=== PATIENT | female | born 1935 | race Caucasian/White ===

== ENCOUNTER 2018-01-06 17:55 | Emergency (ER) | payer OTHER ==
[2018-01-06] MEDS: ACETAMINOPHEN 500 MG TAB PO (20:12)
[2018-01-06] MEDS: DIPHTH/TET/ACEL PERTUSS (ADULT) 0.5 ML VIAL IM (20:19)
[2018-01-06] MEDS: LIDOCAINE 2%/EPI MPF (SDV) 20 ML VIAL INJ (20:46)
== END 2018-01-06 22:13 | disposition home or self-care (01) ==
LOC: FTE 17:55
DX: S01.111A Laceration without foreign body of right eyelid and periocular area, initial encounter (principal); S01.81XA Laceration without foreign body of other part of head, initial encounter; I10 Essential (primary) hypertension; W22.8XXA Striking against or struck by other objects, initial encounter; Y92.481 Parking lot as the place of occurrence of the external cause; Z23 Encounter for immunization
CPT/HCPCS: 12011; 70450; 70486; 72125; 90471; 90715; 99285-25

== ENCOUNTER 2018-02-03 21:21 | Inpatient (IN) | payer OTHER ==
[2018-02-03 23:42] LABS: WHITE BLOOD COUNT 9.9 10^3/ul (4.8-10.8)
[2018-02-03 23:43] LABS: HEMATOCRIT 31.4 % (37.0-47.0); HEMOGLOBIN 10.5 g/dl (12.0-16.0); MEAN CORPUSCULAR HEMOGLOBIN 28.5 pg (29.0-33.0); MEAN CORPUSCULAR HGB CONC 33.4 g/dl (32.0-37.0); MEAN CORPUSCULAR VOLUME 85.1 fl (82.0-101.0); MEAN PLATELET VOLUME 9.8 fl (7.4-10.4); PLATELET COUNT 707 10^3/UL (140-415); RED BLOOD COUNT 3.69 10^6/ul (4.20-5.40); RED CELL DISTRIBUTION WIDTH 16.7 % (11.5-14.5)
[2018-02-03 23:59] LABS: ALANINE AMINOTRANSFERASE 63 IU/L (13-69); ALKALINE PHOSPHATASE 408 IU/L (42-121); ANION GAP 11 (8-16); ASPARTATE AMINO TRANSFERASE 88 IU/L (15-46); BILIRUBIN,INDIRECT 0.4 mg/dl (0-1.1); BILIRUBIN,TOTAL 0.4 mg/dl (0.2-1.3); BLOOD UREA NITROGEN 9 mg/dl (7-20); CALCIUM 8.4 mg/dl (8.4-10.2); CARBON DIOXIDE 24 mmol/L (21-31); CHLORIDE 104 mmol/L (97-110); CREATININE 0.47 mg/dl (0.44-1.00); GLUCOSE 108 mg/dl (70-220); LIPASE 287 U/L (23-300); POTASSIUM 3.9 mmol/L (3.5-5.1); SODIUM 135 mmol/L (135-144)
[2018-02-04] LABS: ALBUMIN 2.7 g/dl (3.3-4.9); ALBUMIN/GLOBULIN RATIO 0.75; TOTAL PROTEIN 6.3 g/dl (6.1-8.1)
[2018-02-04 00:13] LABS: ADD MAN DIFF? YES; PATH REVIEW? YES
[2018-02-04 00:18] LABS: INR 0.91; PARTIAL THROMBOPLASTIN TIME 33.7 Sec (25.0-35.0); PROTIME 12.3 Sec (11.9-14.9)
[2018-02-04] MEDS ORDERED: ONDANSETRON 4 MG INJ (00:30)
[2018-02-04] MEDS: ONDANSETRON 4 MG INJ IV (00:33)
[2018-02-04 01:03] LABS: BAND NEUTROPHILS #M 0.2 10^3/ul (0.0-0.6); BAND NEUTROPHILS % (M) 3 % (0-4); GIANT THROMBO% (M) 1 % (0-0); LYMPHOCYTES #M 0.6 10^3/ul (0.8-2.9); LYMPHOCYTES % (M) 7 % (15-51); METAMYELOCYTES %M 1 % (0-0); MONOCYTE #M 0.3 10^3/ul (0.3-0.9); MONOCYTES % (M) 4 % (0-11); PLATELET ESTIMATE INCREASED; SEG NEUT #M 8.4 10^3/ul (1.6-7.5); SEGMENTED NEUTROPHILS (M) % 85 % (39-77); SMUDGE%M 2 % (0-0)
[2018-02-04 01:28] LABS: URINE BLOOD (Dip) POC Negative (NEGATIVE); URINE GLUCOSE (Dip) POC Negative (NEGATIVE); URINE KETONES (Dip) POC Negative (NEGATIVE); URINE LEUKOCYTE EST (Dip) POC Negative (NEGATIVE); URINE NITRITE (Dip) POC Negative (NEGATIVE); URINE TOTAL PROTEIN POC 1+ (NEGATIVE)
[2018-02-04] MEDS ORDERED: NACL 0.9% 3 ML SYG IV (07:00)
[2018-02-04] MEDS ORDERED: ALBUTEROL/IPRATROPIUM (NEB) 3 ML AMP HHN (07:00)
[2018-02-04] MEDS ORDERED: LOPERAMIDE 2 MG CAP PO (07:00)
[2018-02-04] MEDS: PANTOPRAZOLE (EC) 40 MG TAB PO (07:11)
[2018-02-04] MEDS: DOCUSATE SODIUM 100 MG CAP PO ×2 (09:50→20:00)
[2018-02-04] MEDS: traMADol 50 MG TAB PO (14:33)
[2018-02-04] MEDS ORDERED: ZOLPIDEM 5 MG TAB PO (18:30)
[2018-02-04] MEDS: SOD CHLORIDE 0.9% 1,000 ML IV (19:55)
[2018-02-04] MEDS ORDERED: traZODone 50 MG TAB PO (21:00)
[2018-02-05 05:18] LABS: ADD MAN DIFF? NO
[2018-02-05 05:29] LABS: BASOPHIL # 0.1 10^3/ul (0.0-0.1); BASOPHILS % 1.1 % (0.0-2.0); EOSINOPHILS # 0.1 10^3/ul (0.0-0.5); EOSINOPHILS % 0.5 % (0.0-7.0); HEMATOCRIT 31.4 % (37.0-47.0); HEMOGLOBIN 10.1 g/dl (12.0-16.0); LYMPHOCYTES # 1.2 10^3/ul (0.8-2.9); LYMPHOCYTES % 12.2 % (15.0-51.0); MEAN CORPUSCULAR HEMOGLOBIN 27.4 pg (29.0-33.0); MEAN CORPUSCULAR HGB CONC 32.2 g/dl (32.0-37.0); MEAN CORPUSCULAR VOLUME 85.1 fl (82.0-101.0); MEAN PLATELET VOLUME 9.9 fl (7.4-10.4); MONOCYTE # 0.7 10^3/ul (0.3-0.9); NEUTROPHIL # 7.7 10^3/ul (1.6-7.5); NEUTROPHILS % 78.8 % (39.0-77.0); PLATELET COUNT 677 10^3/UL (140-415); RED BLOOD COUNT 3.69 10^6/ul (4.20-5.40); RED CELL DISTRIBUTION WIDTH 16.5 % (11.5-14.5)
[2018-02-05 05:29] LABS: WHITE BLOOD COUNT 9.8 10^3/ul (4.8-10.8)
[2018-02-05] MEDS: PANTOPRAZOLE (EC) 40 MG TAB PO ×2 (05:39→07:20)
[2018-02-05 06:02] LABS: ALANINE AMINOTRANSFERASE 49 IU/L (13-69); ALBUMIN 2.4 g/dl (3.3-4.9); ALKALINE PHOSPHATASE 355 IU/L (42-121); ANION GAP 10 (8-16); ASPARTATE AMINO TRANSFERASE 67 IU/L (15-46); BILIRUBIN,INDIRECT 0.3 mg/dl (0-1.1); BILIRUBIN,TOTAL 0.3 mg/dl (0.2-1.3); BLOOD UREA NITROGEN 9 mg/dl (7-20); CALCIUM 8.1 mg/dl (8.4-10.2); CARBON DIOXIDE 27 mmol/L (21-31); CHLORIDE 104 mmol/L (97-110); CHOL/HDL RATIO 3.8 RATIO; CHOLESTEROL 80 mg/dl (100-200); CREATININE 0.51 mg/dl (0.44-1.00); GLUCOSE 86 mg/dl (70-220); HDL CHOLESTEROL 21 mg/dl (33-92); LDL CHOLESTEROL,CALCULATED 38 mg/dl; PHOSPHORUS 3.2 mg/dl (2.5-4.9); POTASSIUM 3.8 mmol/L (3.5-5.1); SODIUM 137 mmol/L (135-144); TOTAL PROTEIN 5.4 g/dl (6.1-8.1); TRIGLYCERIDES 106 mg/dl (0-149)
[2018-02-05 06:12] LABS: HEMOGLOBIN A1C 5.4 % (0-5.9)
[2018-02-05] MEDS: METOPROLOL 25 MG TAB PO (08:57)
[2018-02-05] MEDS: traMADol 50 MG TAB PO ×2 (08:58→18:00)
[2018-02-05] MEDS: DOCUSATE SODIUM 100 MG CAP PO ×2 (09:00→21:00)
[2018-02-05] MEDS: SOD CHLORIDE 0.9% 1,000 ML IV ×2 (11:17→23:43)
[2018-02-06] MEDS: traMADol 50 MG TAB PO ×2 (00:14→20:27)
[2018-02-06] MEDS: morphine 4 MG/ML VIAL IV (03:32)
[2018-02-06] MEDS: SOD CHLORIDE 0.9% 1,000 ML IV ×2 (08:00→12:50)
[2018-02-06] MEDS: DOCUSATE SODIUM 100 MG CAP PO ×3 (09:00→20:27)
[2018-02-06] MEDS: PANTOPRAZOLE (EC) 40 MG TAB PO ×2 (09:52→10:04)
[2018-02-06] MEDS: ONDANSETRON 4 MG INJ IV (10:00)
[2018-02-07] MEDS: SOD CHLORIDE 0.9% 1,000 ML IV ×2 (00:57→17:28)
[2018-02-07] MEDS: DOCUSATE SODIUM 100 MG CAP PO (08:24)
[2018-02-07] MEDS: ONDANSETRON 4 MG INJ IV ×2 (11:16→19:12)
[2018-02-07] MEDS: traMADol 50 MG TAB PO ×2 (14:09→20:10)
[2018-02-07] MEDS: DOCUSATE SODIUM 10 MG/ML (10ML CUP) PO (20:10)
[2018-02-08] MEDS: ACETAMINOPHEN 325 MG TAB PO (00:06)
[2018-02-08] MEDS: traMADol 50 MG TAB PO ×2 (04:25→12:39)
[2018-02-08] MEDS: PANTOPRAZOLE (EC) 40 MG TAB PO (06:13)
[2018-02-08] MEDS: DOCUSATE SODIUM 10 MG/ML (10ML CUP) PO (09:24)
[2018-02-08] MEDS: SOD CHLORIDE 0.9% 1,000 ML IV (11:06)
== END 2018-02-08 14:35 | disposition home health service (06) | DRG 436 ==
LOC: E/R 21:21 → MS1 02-04 08:50 → E/R 02-04 09:21 → MS1 02-04 02:00
DX: C22.8 Malignant neoplasm of liver, primary, unspecified as to type (principal); C79.9 Secondary malignant neoplasm of unspecified site; I10 Essential (primary) hypertension; E78.5 Hyperlipidemia, unspecified; F32.9 Major depressive disorder, single episode, unspecified; Z87.891 Personal history of nicotine dependence; Z51.5 Encounter for palliative care
CPT/HCPCS: 36415; 71045; 74176; 80053; 80061; 81003; 83036; 83690; 83735; 84100; 85025; 85610; 85730; 93306; 96374; 97116; 97162; 97530; 99217; 99285-25